=== PATIENT | female | born 1995 | race African-American/Black ===

== ENCOUNTER 2018-08-20 17:51 | Emergency (ER) | payer OTHER ==
[~2018-08-20] VITALS: Ht 157.5 cm; Wt 62.6 kg
--- NOTE | 2018-08-20 17:55 | ED.ADGEN ---
Past History Past Medical History: No Pertinent History Past Surgical History: No Surgical History Smoking: Non-smoker Alcohol Use: None Drug Use: None Adult General Chief Complaint Chief Complaint ".I got some bad dental pain.. " [facility] HPI Patient is a 23 year old female who presents with above hx and complaints dental pain. He recently had extractions areas 32 and 17. The teeth removed move due to infection. Patient localizes pain mainly on right and area 32. No trismus. No significant adenopathy. Does have other areas of dental decay. Patient does have scheduled follow-up with Dentist. No history immunosuppression. No history of travel or specific ill contacts normally healthy. Patient follows with Dr. Slade. Review of Systems Review of Systems Constitutional: Denies fever or chills [] Eyes: Denies change in visual acuity, redness, or eye pain [] HENT: Denies nasal congestion or sore throat [The ]complaints of dental pain. Respiratory: Denies cough or shortness of breath [] Cardiovascular: No additional information not addressed in HPI [] GI: Denies abdominal pain, nausea, vomiting, bloody stools or diarrhea [] : Denies dysuria or hematuria [] Musculoskeletal: Denies back pain or joint pain [] Integument: Denies rash or skin lesions [] Neurologic: Denies headache, focal weakness or sensory changes [] Endocrine: Denies polyuria or polydipsia [] All other systems were reviewed and found to be within normal limits, except as documented in this note. Family History Family History Noncontributory Current Medications Current Medications Current Medications Medications (Trade) Dose Ordered Sig/Tyrell Start Time Stop Time Status Last Admin Dose Admin Cephalexin HCl (Keflex) 500 mg 1X ONCE 08/20/18 18:45 08/20/18 18:45 DC 08/20/18 18:28 500 MG Hydrocodone Bitartrate/ Ibuprofen (Vicoprofen 7.5-200) 1 tab 1X ONCE 08/20/18 18:45 08/20/18 18:45 DC 08/20/18 18:29 1 TAB See nursing for home meds Allergies Allergies Allergies Coded Allergies Type Severity Reaction Last Updated Verified No Known Drug Allergies 04/29/15 No Physical Exam Physical Exam Constitutional: Well developed, well nourished, moderately acute distress, non- toxic appearance. [] HENT: Normocephalic, atraumatic, bilateral external ears normal, oropharynx moist, no oral exudates, nose normal. Dental extractions as per history of present illness. No trismus Eyes: PERRLA, EOMI, conjunctiva normal, no discharge. [] Neck: Normal range of motion, no tenderness, supple, no stridor. [] Cardiovascular:Heart rate regular rhythm, no murmur [] Lungs & Thorax: Bilateral breath sounds equal apex with few scattered wheezes on auscultation [] Abdomen: Bowel sounds normal, soft, no tenderness, no masses, no pulsatile masses. [] Skin: Warm, dry, no erythema, no rash. [] Back: No tenderness, no CVA tenderness. [] Extremities: No tenderness, no cyanosis, no clubbing, ROM intact, no edema. [] Neurologic: Alert and oriented X 3, normal motor function, normal sensory function, no focal deficits noted. [] Psychologic: Affect anxious, judgement normal, mood normal. [] Current Patient Data Vital Signs Vital Signs Date Time Temp Pulse Resp B/P (MAP) Pulse Ox O2 Delivery O2 Flow Rate FiO2 08/20/18 18:53 98.2 75 16 100 EKG EKG [] Radiology/Procedures Radiology/Procedures [] Course & Med Decision Making Course & Med Decision Making Pertinent Labs and Imaging studies reviewed. (See chart for details). Keep follow-up with Eliseo and shelley. Take Keflex 500 mg 3 times a day. Take Tylenol and ibuprofen for pain. Take Vicoprofen for marked pain up to 4 times a day. Must follow-up. Return if any concerns. [] Final Impression Final Impression 1. Dental pain 2. Recent extractions 32 ,17[] Dragon Disclaimer Dragon Disclaimer This electronic medical record was generated, in whole or in part, using a voice recognition dictation system. Dragon Disclaimer This chart was dictated in whole or in part using Voice Recognition software in a busy, high-work load, and often noisy Emergency Department environment. It may contain unintended and wholly unrecognized errors or omissions. Dragon Disclaimer This chart was dictated in whole or in part using Voice Recognition software in a busy, high-work load, and often noisy Emergency Department environment. It may contain unintended and wholly unrecognized errors or omissions. Discharge Summary Visit Information Final Diagnosis Problems Medical Problems: (1) Pain, dental Status: Acute Brief Hospital Course Allergies Allergies Coded Allergies Type Severity Reaction Last Updated Verified No Known Drug Allergies 04/29/15 No Vital Signs Vital Signs Date Time Temp Pulse Resp B/P (MAP) Pulse Ox O2 Delivery O2 Flow Rate FiO2 08/20/18 18:53 98.2 75 16 100 Brief Hospital Course Ms. Castro is a 23 old female who presented with complaints of dental pain after extractions. Discharge Information Condition at Discharge: Improved, Stable Disposition/Orders: D/C to Home Dischare Medications Current Medications Cephalexin HCl (Keflex) 500 mg 1X ONCE PO Last administered on 08/20/18at 18:28 ; Admin Dose 500 MG; Start 08/20/18 at 18:45; Stop 08/20/18 at 18:45; Status DC Hydrocodone Bitartrate/ Ibuprofen (Vicoprofen 7.5-200) 1 tab 1X ONCE PO Last administered on 08/20/18at 18:29; Admin Dose 1 TAB; Start 08/20/18 at 18:45; Stop 08/20/18 at 18:45; Status DC Active Scripts Active Keflex (Cephalexin) 500 Mg Capsule 500 Mg PO TID 10 Days Hydrocodone-Ibuprofen 7.5-200 (Hydrocodone/Ibuprofen) 1 Each Tablet 1 Tab PO PRN Q6HRS PRN Discharge Summary Visit Information Final Diagnosis Problems Medical Problems: (1) Pain, dental Status: Acute Brief Hospital Course Allergies Allergies Coded Allergies Type Severity Reaction Last Updated Verified No Known Drug Allergies 04/29/15 No Vital Signs Vital Signs Date Time Temp Pulse Resp B/P (MAP) Pulse Ox O2 Delivery O2 Flow Rate FiO2 08/20/18 18:53 98.2 75 16 100 Brief Hospital Course Ms. Castro is a 23 old female who presented with dental pain after extractions. Has follow up with dentist. Discharge Information Condition at Discharge: Improved, Stable Disposition/Orders: D/C to Home Dischare Medications Current Medications Cephalexin HCl (Keflex) 500 mg 1X ONCE PO Last administered on 08/20/18at 18:28 ; Admin Dose 500 MG; Start 08/20/18 at 18:45; Stop 08/20/18 at 18:45; Status DC Hydrocodone Bitartrate/ Ibuprofen (Vicoprofen 7.5-200) 1 tab 1X ONCE PO Last administered on 08/20/18at 18:29; Admin Dose 1 TAB; Start 08/20/18 at 18:45; Stop 08/20/18 at 18:45; Status DC Active Scripts Active Keflex (Cephalexin) 500 Mg Capsule 500 Mg PO TID 10 Days Hydrocodone-Ibuprofen 7.5-200 (Hydrocodone/Ibuprofen) 1 Each Tablet 1 Tab PO PRN Q6HRS PRN KYRA MCCONNELL MD Aug 20, 2018 17:55
[2018-08-20] MEDS ORDERED: HYDR-1179 PO (18:08)
[2018-08-20] MEDS ORDERED: CEPH-264 PO (18:08)
[2018-08-20] MEDS: CEPHALEXIN 250 MG CAPSULE PO ONE (18:28)
[2018-08-20] MEDS: HYDROcodon/IBUPROFEN 7.5/200MG 1 TAB TABLET PO ONE (18:29)
[2018-08-20 18:53] VITALS: BP 124/70
== END 2018-08-20 18:30 | disposition home or self-care (01) ==
LOC: ER 17:51
DX: K08.89 Other specified disorders of teeth and supporting structures (principal); Z98.818 Other dental procedure status
CPT/HCPCS: 99283

== ENCOUNTER 2020-03-22 11:40 | Emergency (ER) | payer OTHER ==
[~2020-03-22] VITALS: Ht 160 cm; Wt 52.3 kg
[~2020-03-22 11:40] MED LIST: CEPH-264 PO; HYDR-1179 PO
[2020-03-22 11:50] VITALS: BP 128/80
[2020-03-22] MEDS ORDERED: NEOMY/BACITR/POLYMYXIN OINT PACKET. TP ONE (12:00)
[2020-03-22] MEDS ORDERED: diphenhydrAMINE HCL 25 MG CAPSULE PO ONE (12:00)
[2020-03-22] MEDS ORDERED: DEXAMETHASONE 4 MG TABLET PO ONE (12:00)
[2020-03-22] MEDS ORDERED: PRED20TA PO (12:03)
--- NOTE | 2020-03-22 12:03 | PHYS DOC ---
Past History Past Medical History: No Pertinent History Past Surgical History: No Surgical History Smoking: Non-smoker Alcohol Use: None Drug Use: Marijuana General Adult EDM: Chief Complaint: INSECT BITE HPI: HPI: 24-year-old female presents with report of multiple bee stings yesterday while mowing her lawn. Reports she had run over their nest with her lawnmower when they attacked her. Patient reports multiple stings to the top of her lateral foot. Denies any shortness of breath. Denies rash. Reports some swelling and itching to her foot. Review of Systems: Review of Systems: Constitutional: Denies fever or chills Eyes: Denies redness or eye pain HENT: Denies nasal congestion or sore throat Respiratory: Denies cough or shortness of breath Cardiovascular: Denies chest pain or palpitations GI: Denies abdominal pain, nausea, or vomiting : Denies dysuria or hematuria Musculoskeletal: Denies back pain; reports foot pain Integument: Reports swelling, itching, and redness to foot Neurologic: Denies headache, focal weakness or sensory changes Complete systems were reviewed and found to be within normal limits, except as documented in this note. Allergies: Allergies: Allergies Coded Allergies Type Severity Reaction Last Updated Verified No Known Drug Allergies 03/22/20 No Physical Exam: PE: Constitutional: Well developed, well nourished, no acute distress, non-toxic appearance HENT: Normocephalic, atraumatic Eyes: Conjunctiva normal, no discharge Neck: Normal range of motion, supple Lungs & Thorax: No respiratory distress, equal chest rise and fall Skin: Warm, dry, mild erythema and swelling noted to lateral foot, no retained stinger appreciated, skin scraped with rigid card to attempt to remove any retained stinger Extremities: Lateral foot tenderness with associated edema and mild erythema as above, ROM intact Neurologic: Alert and oriented X 3, no focal deficits noted Psychologic: Affect anxious, judgment normal EKG: EKG: [] Radiology/Procedures: Radiology/Procedures: [] Course & Med Decision Making: Course & Med Decision Making Patient presents with insect sting from probable wasp to her lateral foot. Denies . Immunizations up-to-date. Symptomatic treatment provided with oral steroid and Benadryl. Area of sting was scraped to rule out retained stinger. Area cleaned and dressed. Patient stable for discharge with outpatient follow-up with PCP. Discussed findings and plan with patient, who acknowledges understanding and agreement. Juan Disclaimer: Juan Disclaimer: This electronic medical record was generated, in whole or in part, using a voice recognition dictation system. Departure Departure: Impression: Primary Impression: Bee sting Qualified Codes: T63.444A - Toxic effect of venom of bees, undetermined, initial encounter Disposition: HOME/RESIDENCE PRIOR TO ADM Condition: STABLE Referrals: DEBRA MARTINEZ MD (PCP) Patient Instructions: Bee, Wasp, or Hornet Sting Additional Instructions: May also take over the counter Benadryl for further itching as needed. Scripts Prednisone (PREDNISONE) 20 Mg Tablet 2 TAB PO DAILY for Bee sting, #8 TAB Start this prescription tomorrow, Tuesday03/23/20 Prov: TIMMY BENNETT DO 03/22/20 Justification of Admission: Justification of Admission: Justification of Admission Dx: N/A TIMMY BENNETT DO Mar 22, 2020 12:03
== END 2020-03-22 12:14 | disposition home or self-care (01) ==
LOC: ER 11:40
DX: T63.441A Toxic effect of venom of bees, accidental (unintentional), initial encounter (principal); L29.9 Pruritus, unspecified; Y92.89 Other specified places as the place of occurrence of the external cause
CPT/HCPCS: 99284; J8540; Q0163

== ENCOUNTER 2021-10-10 16:52 | Emergency (ER) | payer OTHER ==
[~2021-10-10] VITALS: Ht 160 cm; Wt 60.0 kg
[~2021-10-10 16:52] MED LIST changes: +PRED20TA PO
[2021-10-10 17:00] VITALS: BP 102/52
[2021-10-10] MEDS ORDERED: LIDOCAINE 1%/EPI 1:100,000 20 ML VIAL. IJ ONE (17:15)
[2021-10-10] MEDS ORDERED: LIDOCAINE 1% Multi-Dose 20 ML VIAL. ONE (17:17)
[2021-10-10] MEDS ORDERED: LIDOCAINE 1% PF 30 ML VIAL. INJ ONE (17:30)
--- NOTE | 2021-10-10 17:45 | PHYS DOC ---
Past History Past Medical History: No Pertinent History Additional Past Medical Histor: meningitis (SOHEILA BANUELOS APRN) Past Surgical History: No Surgical History Additional Past Surgical Histo: cyst removed from hand (SOHEILA BANUELOS APRN) Smoking: Non-smoker Alcohol Use: None Drug Use: Marijuana (SOHEILA BANUELOS APRN) General Adult EDM: Chief Complaint: LACERATION/AVULSION HPI: HPI: Patient is a 26-year-old female that presents today with a left hand laceration. Patient states that she was cutting open a new toy for her child and she was using a pocket knife and she said the pocket knife slipped off one of the zip ties and cut her in the hand on the dorsal side. No active bleeding noted. Patient's tetanus is up-to-date. (SOHEILA BANUELOS APRN) Review of Systems: Review of Systems: Constitutional: Denies fever or chills Eyes: Denies change in visual acuity HENT: Denies nasal congestion or sore throat Respiratory: Denies cough or shortness of breath Cardiovascular: Denies chest pain or edema GI: Denies abdominal pain, nausea, vomiting, bloody stools or diarrhea : Denies dysuria Musculoskeletal: Denies back pain or joint pain Integument: Laceration left hand denies rash Neurologic: Denies headache, focal weakness or sensory changes Endocrine: Denies polyuria or polydipsia Lymphatic: Denies swollen glands Psychiatric: Denies depression or anxiety (SOHEILA BANUELOS APRN) Current Medications: Current Meds: Current Medications Medications (Trade) Dose Ordered Sig/Tyrell Start Time Stop Time Status Last Admin Dose Admin Lidocaine HCl 20 ml STK-MED ONCE 10/10/21 17:17 10/10/21 17:17 DC Lidocaine HCl (Lidocaine 1% Pf) 30 ml 1X ONCE 10/10/21 17:30 10/10/21 17:31 DC 10/10/21 17:30 30 ML Lidocaine/ Epinephrine (Xylocaine 1%-Epi 1:100,000) 20 ml 1X ONCE 10/10/21 17:15 10/10/21 17:16 UNV (SOHEILA BANUELOS APRN) Allergies: Allergies: Allergies Coded Allergies Type Severity Reaction Last Updated Verified No Known Drug Allergies 03/22/20 No (SOHEILA BANUELOS APRN) Physical Exam: PE: Constitutional: Well developed, well nourished, no acute distress, non-toxic appearance. [] HENT: Normocephalic, atraumatic, bilateral external ears normal, oropharynx moist, no oral exudates, nose normal. [] Eyes: PERRLA, EOMI, conjunctiva normal, no discharge. [] Neck: Normal range of motion, no tenderness, supple, no stridor. [] Cardiovascular:Heart rate regular rhythm, no murmur [] Lungs & Thorax: Bilateral breath sounds clear to auscultation [] Abdomen: Bowel sounds normal, soft, no tenderness, no masses, no pulsatile masses. [] Skin: 2.5 cm laceration noted on the hand between the thumb and index finger it is gaping. Warm, dry, no erythema, no rash. [] Back: No tenderness, no CVA tenderness. [] Extremities: Left hand neurovascular intact, cap refill less than 2 seconds, flexion extension of the hand is within normal limits. No tenderness, no cyanosis, no clubbing, ROM intact, no edema. [] Neurologic: Alert and oriented X 3, normal motor function, normal sensory function, no focal deficits noted. [] Psychologic: Affect normal, judgement normal, mood normal. [] (SOHEILA BANUELOS APRN) Current Patient Data: Vital Signs: Vital Signs Date Time Temp Pulse Resp B/P (MAP) Pulse Ox O2 Delivery O2 Flow Rate FiO2 10/10/21 17:00 98.0 62 16 102/52 (69) 100 (SOHEILA BANUELOS APRN) EKG: EKG: [] (SOHEILA BANUELOS APRN) Radiology/Procedures: Radiology/Procedures: Indication: Laceration to left hand Procedure: The patient was placed in the appropriate position and anesthesia around the left hand laceration was done using lidocaine 1% with epinephrine approximately 4 mL was infiltrated into the wound. The area was then cleansed with Betadine solution. Laceration was irrigated with approximately 60 mL of normal saline. The laceration was closed using 4 interrupted three-point 0 Ethilon sutures. The wound area was then dressed with nonadherent dressing. Total repaired wound length: 2.5 cm. The patient tolerated the procedure well Complications: None [] (SOHEILA BANUELOS APRN) Heart Score: C/O Chest Pain: N/A Risk Factors: Risk Factors: DM, Current or recent (<one month) smoker, HTN, HLP, family history of CAD, obesity. Risk Scores: Score 0 - 3: 2.5% MACE over next 6 weeks - Discharge Home Score 4 - 6: 20.3% MACE over next 6 weeks - Admit for Clinical Observation Score 7 - 10: 72.7% MACE over next 6 weeks - Early Invasive Strategies (SOHEILA BANUELOS APRN) Course & Med Decision Making: Course & Med Decision Making Pertinent Labs and Imaging studies reviewed. (See chart for details) Suture repair done, patient is up-to-date on her tetanus. Patient is instructed to clean the wound twice daily using mild soap and water. Patient does work in the [employer] is instructed to keep it covered while at work, and watching for any signs and symptoms of infection, sutures out in 5 to 7 days. (SOHEILA BANUELOS APRN) Dragon Disclaimer: Dragon Disclaimer: This electronic medical record was generated, in whole or in part, using a voice recognition dictation system. (SOHEILA BANUELOS APRN) Attending Co-Sign The patient was seen and interviewed as well as examined at the bedside. The chart was reviewed. The case was discussed. Agree with the plan of care. (BRADY DARBY DO) Departure Departure: Impression: Primary Impression: Laceration of hand Qualified Codes: S61.412A - Laceration without foreign body of left hand, initial encounter Disposition: HOME / SELF CARE / HOMELESS Condition: STABLE Referrals: PCP,NO (PCP) Patient Instructions: Laceration Care, Adult Additional Instructions: Suture removal in 7 to 10 days, you may return here to the emergency department to have those removed or follow-up with your primary care physician to have them removed Tylenol and/or ibuprofen as needed for pain Cleanse the wound twice daily with mild soap and water Watching for any signs and symptoms of infection which may include swelling, redness, warmth, foul drainage, or development of a fever if you are showing signs and symptoms of infection please return here to the emergency department SOHEILA BANUELOS APRN Oct 10, 2021 17:45 BRADY DARBY DO Oct 12, 2021 11:05
== END 2021-10-10 18:05 | disposition home or self-care (01) ==
LOC: ER 16:52
DX: S61.412A Laceration without foreign body of left hand, initial encounter (principal); W26.0XXA Contact with knife, initial encounter; Y93.89 Activity, other specified; Y92.89 Other specified places as the place of occurrence of the external cause; Y99.8 Other external cause status
CPT/HCPCS: 12001; 99282